=== PATIENT | male | born 1980 | race Caucasian/White ===

== ENCOUNTER 2017-03-18 10:15 | Emergency (ER) | payer OTHER ==
[2017-03-18 11:55] VITALS: BP 120/86
== END 2017-03-18 11:55 | disposition home or self-care (01) ==
LOC: ED 10:15
DX: S39.012A Strain of muscle, fascia and tendon of lower back, initial encounter (principal); X50.9XXA Other and unspecified overexertion or strenuous movements or postures, initial encounter; Y93.E9 Activity, other interior property and clothing maintenance; Y99.8 Other external cause status; Y92.89 Other specified places as the place of occurrence of the external cause
CPT/HCPCS: J3010